=== PATIENT | female | born 1955 | race Caucasian/White ===

== ENCOUNTER 2024-02-07 10:16 | Emergency (ER) | payer MEDICARE ==
[2024-02-07 10:41] VITALS: RESP 20; TEMP 98.2
--- NOTE | 2024-02-07 11:28 | ERPHSYRPT ---
- History of Present Illness Time Seen by Provider: 02/07/24 10:51 Source: patient, family Exam Limitations: no limitations Patient Subjective Stated Complaint: PT states "I have this infection on my nose and I was on bactrim and I thought it was getting better and it got more red and swollen." Triage Nursing Assessment: Pt presented alert and oriented X 3, sin pwd. Pt ambulates with an upright steady gait, able to speak in clear full sentences. pt resting on the bed calmly, pt bridge of nose red swollen and hot. Physician History: 68-year-old female with history of MRSA in the past presented in the ER with a small pimple which appeared on the left side of the nose followed by swelling almost 4 days ago. She was evaluated primary care and was started on Bactrim DS, has been taking for the last 3 days and it seemed like it was improving until last night it got more swollen and tightening of the skin of the nose with some redness on the cheek. Patient reported it is better than last night now. No fever or chills reported. No difficulty breathing. No difficulty movements of eyeball. No headache or altered mental status. Allergies/Adverse Reactions: No Known Drug Allergies Allergy (Verified 02/07/24 10:41) Home Medications: Metoprolol Succinate 50 mg [Toprol Xl 50 MG] 50 mg PO DAILY 02/07/24 [History] Simvastatin 20Mg [Zocor 20Mg] 20 mg PO DAILY 02/07/24 [History] Hx Tetanus, Diphtheria Vaccination/Date Given: No Hx Influenza Vaccination/Date Given: Yes Hx Pneumococcal Vaccination/Date Given: Yes Immunizations Up to Date: Yes Travel Risk - International Travel Have you traveled outside of the country in past 3 weeks: No - Emerging Infectious Disease Are you exhibiting symptoms associated with any current EIDs: No - Review of Systems Constitutional: No Symptoms Eyes: No Symptoms Ears, Nose, & Throat: Nose Pain Respiratory: No Symptoms Cardiac: No Symptoms Abdominal/Gastrointestinal: No Symptoms Genitourinary Symptoms: No Symptoms Musculoskeletal: No Symptoms Skin: Induration Neurological: No Symptoms Psychological: No Symptoms Endocrine: No Symptoms - Past Medical History Pertinent Past Medical History: Yes Cardiac History: High Cholesterol, Hypertension Musculoskeletal History: Osteoporosis - Past Surgical History Past Surgical History: Yes Other Surgical History: c section. hysterectomy - Social History Smoking Status: Current every day smoker How long have you smoked: years Exposure to second hand smoke: Yes Drug Use: none - Nursing Vital Signs Nursing Vital Signs: Initial Vital Signs Temperature 98.2 F 02/07/24 10:35 Pulse Rate 75 02/07/24 10:35 Respiratory Rate 20 02/07/24 10:35 Blood Pressure 196/94 02/07/24 10:35 O2 Sat by Pulse Oximetry 98 02/07/24 10:35 Pain Scale Pain Intensity 0 - Physical Exam General Appearance: no apparent distress, alert Eye Exam: bilateral eye: normal inspection, PERRL, EOMI Ear Exam: bilateral ear: auricle normal, canal normal, TM normal Nasal Exam: No normal inspection (Diffuse erythema/swelling especially on bridge of nose and minimal around the tip of nose. Warm, mildly tender to touch. Small hartley on the left nostril. No fluctuation.) Throat Exam: normal, pharynx normal, No dental tenderness Neck Exam: normal inspection, non-tender, supple, full range of motion Cardiovascular/Respiratory Exam: normal breath sounds, regular rate/rhythm Neurologic Exam: alert, oriented x 3, cooperative Skin Exam: normal color SpO2 Interpretation: normal SpO2: 97 O2 Delivery: Room Air - Progress Progress: unchanged Progress Note: 02/07/24 11:26 68-year-old is evaluated in the ER for nasal swelling cellulitis/erysipelas. Patient is afebrile. Nontoxic appearance. Intact range of motion of eyeball. Nonfocal neuroexam. No fluctuation. I have punctured the hartley with no abscess or purulent material. I believe patient has cellulitis of the nose. She has been taking 1 tablet twice a day of Bactrim DS. Per up-to-date patient needs 2 tabs of Bactrim DS twice a day for nasal cellulitis. Patient previous kidney function showed a creatinine of 1.3. I would not give her Bactrim but we will switch her to 450 mg clindamycin 3 times a day and have her outpatient follow-up. Also recommended applying bacitracin topically. Do not think janes whitaker needs to be admitted at this stage, discussed with patient in detail about signs symptoms of worsening needing return to ER which she seems understanding. Counseled pt/family regarding: diagnosis, need for follow-up Medical Desision Making - Independent Historian Additional History obtained from: Spouse - Risk of complications The pt has a mod risk of morbidity or mortality based on: Need for prescription drug management - Departure Departure Disposition: Home Clinical Impression: Cellulitis of nose, external Condition: Stable Critical Care Time: No Referrals: CHRISTIANA ANDRADE [Primary Care Provider] - Follow up with PCP 1 day Instructions: MRSA (DC) Additional Instructions: Take Tylenol as needed for pain. Follow-up with primary care for reevaluation in 1 to 2 days. Return to ER for any worsening. Prescriptions: Bacitracin 28 gm TP BID 7 Days #1 tu clindamycin HCL [Cleocin HCl] 450 mg PO TID 10 Days #90 cap
[2024-02-07 11:47] VITALS: BP 126/73; PULSE 56; O2SAT 98
== END 2024-02-07 11:54 | disposition home or self-care (01) ==
LOC: ED 10:16
DX: J34.0 Abscess, furuncle and carbuncle of nose (principal); E78.5 Hyperlipidemia, unspecified; I10 Essential (primary) hypertension; Z79.899 Other long term (current) drug therapy; Z72.0 Tobacco use
CPT/HCPCS: 99282